=== PATIENT | male | born 1960 | race Caucasian/White ===

== ENCOUNTER 2019-08-02 14:55 | Emergency (ER) | payer BC, SELFPAY ==
[2019-08-02 14:59] VITALS: BP 122/83; PULSE 115; RESP 20; TEMP 36.4; O2SAT 98
--- NOTE | 2019-08-02 15:38 | ED.SKABFB ---
HPI - Skin/Abscess/Foreign Bdy General Chief complaint: Skin/Abscess/Foreign Body Stated complaint: poison dhiraj Time Seen by Provider: 08/02/19 15:18 Source: patient Mode of arrival: ambulatory Limitations: no limitations History of Present Illness HPI narrative: This is a 59-year-old male that presents the emergency department for poison dhiraj rash. Reports this is been present for about a week. On the forearms and upper legs. Also on the abdomen. Reports itching. He has been using [id number] ointments with little relief. Reports his left forearm has become more red and swollen. Denies fevers. Related Data Allergies Allergy/AdvReac Type Severity Reaction Status Date / Time clavulanic acid Allergy Mild Unknown Verified 08/02/19 15:04 Penicillins Allergy Mild Unknown Verified 08/02/19 15:04 BETALACTAMASEIN Allergy Mild Unknown Uncoded 08/02/19 15:04 Review of Systems Review of Systems: Narrative: CONSTITUTIONAL: Denies fever SKIN: Reports rash and itching. All systems reviewed & are unremarkable except as noted in HPI and below PMFSH Past Medical History Medical History (Updated 08/02/19 @ 15:42 by Gabriela Mcwilliams PA-C) History of sleep apnea Seasonal allergies Exam Narrative: Exam Narrative: GENERAL: Well-appearing, well-nourished, and in no acute distress. HEAD: Normocephalic, atraumatic. EYES: EOMI. EXTREMITIES: Normal range of motion. Red, papular rash with excoriations present to the bilateral forearms and left thigh. Left forearm with mild surrounding erythema and edema of the rash SKIN: Warm, dry, no rash. NEURO: No focal deficits. Alert and oriented x3. PSYCH: Normal mood and affect Course Vital Signs Vital signs: Vital Signs Temperature 97.6 F 08/02/19 14:59 Pulse Rate 115 H 08/02/19 14:59 Respiratory Rate 08/02/19 14:59 Blood Pressure 122/83 08/02/19 14:59 Pulse Oximetry 98 08/02/19 14:59 Temperature 97.6 F 08/02/19 14:59 Pulse Rate 115 H 08/02/19 14:59 Respiratory Rate 08/02/19 14:59 Blood Pressure 122/83 08/02/19 14:59 Pulse Oximetry 98 08/02/19 14:59 MDM - Skin/Abscess/Foreign Bdy MDM Narrative Medical decision making narrative: Patient presents the emergency department for contact dermatitis due to poison dhiraj. Patient instructed on antihistamines. He will be started on a oral steroid taper. Possible secondary bacterial infection of the left forearm. Patient will also be started on oral antibiotic. He is to follow-up with primary care doctor. He was given warnings to return to the ER Critical Care Time Critical Care Time Critical Care Time: No Discharge Plan Discharge Clinical Impression: Cellulitis Qualifiers: Site of cellulitis: extremity Site of cellulitis of extremity: upper extremity Laterality: left Qualified Code(s): L03.114 - Cellulitis of left upper limb Contact dermatitis Qualifiers: Contact dermatitis type: irritant Contact dermatitis trigger: oil Qualified Code(s): L24.1 - Irritant contact dermatitis due to oils and greases Patient Disposition: Home, Self-Care Condition: Stable Instructions: Antibiotic Form, Contact Dermatitis (ED), Cellulitis (ED) Additional Instructions: Return to the emergency department if you experience fever, worsening redness and swelling of your arm, or any other symptoms that are concerning to you Taking Zyrtec and Pepcid daily. Benadryl as needed for severe itching. Take steroid taper as prescribed. Take antibiotic as prescribed Follow-up with primary care doctor Prescriptions: New prednisone 10 mg tablets,dose pack See Rx Instructions .ROUTE .COMPLEX Qty: 48 RF: 0 cephalexin 500 mg capsule 500 mg PO Q6H 7 Days Qty: 28 RF: 0 Follow-up/Referrals: Aishwarya Shelley MD [Physician] - 1 Week PHYSICIAN,CORRECTIONAL PROGRAM OFFICER [Primary Care Provider] -
== END 2019-08-02 16:12 | disposition home or self-care (01) ==
PROVIDERS: Emergency Provider Emergency Medicine
DX: L03.114 Cellulitis of left upper limb (principal); L23.7 Allergic contact dermatitis due to plants, except food; G47.30 Sleep apnea, unspecified
CPT/HCPCS: 99283

== ENCOUNTER 2021-06-01 07:33 | Outpatient (CLI) | payer BC, SELFPAY ==
--- NOTE | 2021-06-14 13:05 | WPDSLEEPSTUD ---
Sleep Study Date of Study: 06/01/21 Ordering Provider: Loy Escobar APRN Interpreting Physician: Mine Key DO Sleep Study Type: Split Polysomnogram Height: 1.8 m Weight: 103.873 kg Body Mass Index: 31.9 Neck Circumference (inches): 17 [place]: 8 Reason for Sleep Study Previously diagnosed with ROSALEE in 1996. He has been compliant with PAP Therapy since then. His current machine is 13 years old. He has also lost 50 pounds since original study. Needs to requalify for PAP Therapy. Sleep History The patient is a 61-year-old male with diabetes, seasonal allergies, ROSALEE and history of tobacco abuse that had a sleep study ordered by the Pulmonary group so the patient could recall of 5 for PAP therapy. The patient is currently retired. He denies awakening from sleep short of breath. He denies awakening at night with heartburn, belching or cough. He occasionally snores and occasionally loudly enough that others complain. He occasionally has trouble sleeping when he has a cold. He denies waking up gasping for air throughout the night. He occasionally has breathing problems at night observed by himself or others. He denies sweating excessively at night. He denies having heart palpitations or irregular heartbeats during the night. He denies falling asleep during the day and while driving. He denies sleep paralysis and cataplexy. He occasionally experiences vivid dreamlike scenes upon awakening or falling asleep. He denies having nightmares. He rarely has thoughts racing through his mind. He denies feeling sad, depressed or anxious. He rarely has muscular tension. He rarely notices parts of his body jerk. He rarely kicks during the night. He denies having crawling and aching feelings in his legs as well as leg pain during the night. He denies grinding his teeth during sleep and awakening with morning jaw pain. He denies being bothered by pain during the day and being awakened by pain during the night. He rarely wakes up feeling stiff in the morning. He rarely wakes up with sore achy muscles. He rarely wakes up with pain in the neck, spine and joints. He goes to bed between 11 p.m. and midnight on both weekdays and weekends. It takes him 10 minutes to fall asleep. He wakes up once throughout the night to use the restroom. He is able to fall back asleep within 10 minutes. He wakes up between 7 and 8:00 a.m. on both weekdays and weekends. He typically gets 7-9 hours of sleep per night. He will stay in bed for 5 minutes after waking up in the morning. He currently lives with his . He will drink caffeinated beverages within 2 hours of bedtime. He will engage in physical exercise before bedtime. He will read watch television before falling asleep. He does not take naps in the afternoon or the evening. He drinks 2-3 caffeinated beverages per day. He will drink 1-2 alcoholic beverages per day. He quit smoking over 15 years ago. He denies recreational drug use. [facility] Past Medical History Medical History Diabetes mellitus Type 2 History of sleep apnea Seasonal allergies Surgical History Surgical History Hx of tonsillectomy Family History Family History Father Lung cancer Mother Pulmonary fibrosis Diabetes mellitus Sibling Carcinoma of colon Social History Social History Smoking status: Former smoker Smoking end date: 02/12/01 Alcohol intake: current Drinks per week: 1 Alcohol use details: beer/wine 1-2/week Substance use: never Additional occupation/education comments: [employer] Medications Home Medications Medication Instructions Recorded Confirmed Type cetirizine 10 mg capsule 10 mg PO DAILY PRN 05/06/21 05/06/21 History metformin 500 mg
[2021-06-14 13:08] VITALS: BMI 31.9
== END 2021-06-02 06:47 | disposition home or self-care (01) ==
LOC: ANHCSM 07:35
PROVIDERS: PCP Internal Medicine; Visit Provider Nurse Practitioner Family
DX: G47.33 Obstructive sleep apnea (adult) (pediatric) (principal)
CPT/HCPCS: 95811

== ENCOUNTER 2022-05-24 01:30 | Day surgery (SDC) | payer BC, SELFPAY ==
[2022-05-12 12:32] VITALS: BMI 31.4
--- NOTE | 2022-05-23 14:54 | PM.HPGS ---
History of Present Illness History of Present Illness Consent: Risks, benefits, and alternatives have been discussed and questions answered. Patient agrees to proceed with procedure. Chief complaint: neoplasm screening Narrative: Aidan Fuentes is a 62 year old male referred for colon cancer screening. Review of Systems Review of Systems: All systems reviewed & are unremarkable except as noted in HPI and below PMFSH Past Medical History Medical History Diabetes mellitus Type 2 History of sleep apnea Obesity (BMI 30.0-34.9) ROSALEE (obstructive sleep apnea) Seasonal allergies Surgical History Surgical History Hx of tonsillectomy (~1972) Family History Family History Father Lung cancer Mother Pulmonary fibrosis Diabetes mellitus Sibling Carcinoma of colon Other Alcoholism Grandparent Diabetes mellitus Cancer Grandparent Alcoholism Cancer Cerebrovascular accident Heart disease Social History Social History Smoking status: Former smoker Tobacco type: cigarettes Smoking end date: 02/12/01 Additional smoking assessment comments: smoked from age [age]; smoked socially; has not had a cigarette since 2018 Alcohol intake: current Drinks per week: 2 Alcohol use details: beer or wine Substance use: never Substance use type: does not use Living arrangements: with family Occupation/Education: retired 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 Spiritual care concerns: No Agree to blood products: Yes Meds Home Medications and Allergies Home Medications Medication Instructions Recorded Confirmed Type cetirizine 10 mg capsule (Zyrtec) 10 mg PO DAILY PRN Allergy Symptoms 05/06/21 05/12/22 History metformin 500 mg tablet,extended 500 mg PO BID 05/12/22 05/12/22 History release 24 hr multivitamin with minerals-folic 1 tablet PO DAILY 05/12/22 05/12/22 History acid 0.4 mg tablet Allergies Allergy/AdvReac Type Severity Reaction Status Date / Time ampicillin AdvReac Diarrhea Verified 05/24/22 07:17 Exam Const: General: alert Orientation/consciousness: patient oriented x3 Resp: Auscultation: clear to auscultation bilaterally Cardio: Rhythm: regular rhythm GI: GI Palp: Yes Soft to palpation and No Tenderness to palpation present (GI) Neuro: General: patient oriented x3 Assessment and Plan Assessment and plan (1) Colon cancer screening: Code(s): Z12.11 - Encounter for screening for malignant neoplasm of colon Status: Acute Assessment and Plan: Colonoscopy with possible biopsy or polypectomy or cautery or injection of substances.
[2022-05-24 07:16] VITALS: BP 107/71; PULSE 77; RESP 18; TEMP 36.4; O2SAT 100
[2022-05-24] MEDS: LACTATED RINGERS 1,000 ML 150 ML IV CONT (07:28)
[2022-05-24 07:45] LABS: Glucose Point of Care 156 mg/dl (65-105)
--- NOTE | 2022-05-24 08:02 | WPDANESEPPF ---
Anes - Initial Pre Proc Eval Procedure: Operation Date: 05/24/22 08:30 Proposed Procedures p Screening Colonoscopy - Edgar Hicks MD Date/Time: 05/24/22 08:02 Surgeon: Edgar Hicks MD Pre Op Diagnosis: neoplasm screening Patient Data Age: 62 Gender: M Height: 1.8 m Weight: 99.8 kg Last Vital Signs Temp 36.4 C L 05/24/22 07:16 Pulse 77 05/24/22 07:16 Resp 18 05/24/22 07:16 BP 107/71 05/24/22 07:16 Pulse Ox 100 05/24/22 07:16 O2 Del Method Room Air 05/24/22 07:16 Allergies Allergy/AdvReac Type Severity Reaction Status Date / Time ampicillin AdvReac Diarrhea Verified 05/24/22 07:17 Home Medications Medication Instructions Recorded Confirmed Type cetirizine 10 mg capsule (Zyrtec) 10 mg PO DAILY PRN Allergy Symptoms 05/06/21 05/12/22 History metformin 500 mg tablet,extended 500 mg PO BID 05/12/22 05/12/22 History release 24 hr multivitamin with minerals-folic 1 tablet PO DAILY 05/12/22 05/12/22 History acid 0.4 mg tablet Laboratory Tests 05/24/22 07:20 POC Capillary Glucose 156 mg/dl H mg/dl (65-105) Patient hx anesthesia problems: none Family hx anesthesia problems: none Results Review: All pre-operative results and documents have been reviewed as part of the pre-operative evaluation. [facility] Past Medical History Medical History (Updated 05/24/22 @ 08:03 by Tyrone Mata MD) Diabetes mellitus Type 2 History of sleep apnea Obesity (BMI 30.0-34.9) ROSALEE (obstructive sleep apnea) Seasonal allergies Surgical History Surgical History (Updated 04/19/22 @ 10:10 by Kourtney Avila RT(R)) Hx of tonsillectomy (~1972) Family History Family History (Updated 04/19/22 @ 10:11 by RT Sandy(R)) Father Lung cancer Mother Pulmonary fibrosis Diabetes mellitus Sibling Carcinoma of colon Other Alcoholism Grandparent Diabetes mellitus Cancer Grandparent Alcoholism Cancer Cerebrovascular accident Heart disease Social History Social History (Updated 04/20/22 @ 12:50 by Kourtney A. 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 Informed Consent: The patient's anesthetic plan and its attendant risks and benefits were discussed with the patient/family/POA. Questions were solicited and answers provided to the satisfaction of the patient/family/POA.
[2022-05-24 08:31] VITALS: BP 118/81; PULSE 82; RESP 20; O2SAT 100
--- NOTE | 2022-05-24 08:32 | SUR.OPER ---
DR. TENORIO AWARE ONLY 1 DESCENDING COLON POLYP RETRIEVED. Galileo PICHARDO RN & Jossue JOHN RN.
[2022-05-24 08:41] VITALS: BP 136/90; PULSE 71; RESP 19; O2SAT 99
[2022-05-24 08:51] VITALS: BP 123/83; PULSE 74; RESP 18; O2SAT 100
== END 2022-05-24 08:54 | disposition home or self-care (01) ==
PROVIDERS: PCP Nurse Practitioner Family; Visit Provider Internal Medicine Gastroenterology
PROC: 0DJD8ZZ Inspection of Lower Intestinal Tract, Via Natural or Artificial Opening Endoscopic (ICD-10-PCS; CPT 45378; principal; 2022-05-24 08:30)
DX: Z12.11 Encounter for screening for malignant neoplasm of colon (principal); D12.4 Benign neoplasm of descending colon; K62.1 Rectal polyp; E11.9 Type 2 diabetes mellitus without complications; G47.33 Obstructive sleep apnea (adult) (pediatric); Z79.84 Long term (current) use of oral hypoglycemic drugs; E66.9 Obesity, unspecified; Z68.30 Body mass index [BMI] 30.0-30.9, adult; Z87.891 Personal history of nicotine dependence
CPT/HCPCS: 45385; 82948; 88305; J2704; J7120

== ENCOUNTER 2025-01-21 10:23 | Emergency (ER) | payer MEDICARE, SELFPAY ==
--- NOTE | ~2025-01-21 | XR_ITS ---
EXAMINATION: XR chest 2V DATE: 01/21/2025 11:31 INDICATION: Cough TECHNIQUE: Frontal and lateral views of the chest were obtained. COMPARISON: 2008 FINDINGS: Patchy multifocal areas of consolidation in the mid and lower lung garcia. Upper lung garcia clear. Heart size normal. IMPRESSION: 1. Multifocal alveolar consolidative appearing changes which could represent multifocal pneumonia. 2. Correlate with follow-up chest x-ray after treatment. Reviewed, dictated and finalized at location A. PER MARKETING MANAGER IMPRESSION: 1. Multifocal alveolar consolidative appearing changes which could represent mu ltifocal pneumonia. 2. Correlate with follow-up chest x-ray after treatment.
[2025-01-21 10:37] VITALS: BP 129/71; PULSE 138; RESP 18; TEMP 36.1; O2SAT 95
--- NOTE | 2025-01-21 10:40 | ECG_ITS ---
Test Date: 2025-01-21 10:45:50 Measurements Intervals [place] Rate: 132 P: 31 MI: 113 QRS: -23 QRSD: 144 T: 76 QT: 345 QTc: 512 Interpretive Statements ATRIAL FLUTTER/TACHYCARDIA WITH RAPID VENTRICULAR RESPONSE LEFT BUNDLE BRANCH BLOCK BASELINE WANDER- I, II, AVR ABNORMAL ECG No previous ECG available for comparison Electronically Signed On 01-21-2025 10:56:30 TELECOMMUNICATIONS SWITCH TECHNICIAN by Meng Chiu D.O.
[2025-01-21 11:06] LABS: Hematocrit 36.6 % (42.0-52.0); Hemoglobin 12.5 g/dL (14.0-18.0); Immature Granulocyte Percent A 1.9 % (0-0.5); Lymphocytes Absolute Auto 0.57 K/mm3 (0.9-3.2); Mean Corpuscular HGB Conc 34.2 g/dl (32-36); Mean Corpuscular Hemoglobin 29.1 pg (26-34); Mean Corpuscular Volume 85.3 fl (80-100); Nucleated Red Blood Cells Absolute Auto 0.000 K/mm3 (0.0-0.012); Nucleated Red Blood Cells Perc 0.0 % (0.0-0.2); Platelet Count Result 257 k/mm3 (150-375); Red Blood Count 4.29 M/mm3 (4.6-6.20); White Blood Count 7.8 K/mm3 (4.5-10.0)
[2025-01-21 11:28] LABS: Alanine Aminotransferase 54 U/L (6-50); Albumin Level 3.9 g/dL (3.5-5.1); Alkaline Phosphatase 143 U/L (38-126); Anion Gap 8 mmol/L (4-12); Aspartate Amino Transferase 42 U/L (17-59); Bilirubin,Total 0.8 mg/dL (0.2-1.3); Blood Urea Nitrogen 18 mg/dL (9-20); Calcium 8.7 mg/dL (8.4-10.2); Carbon Dioxide 23 mmol/L (22-30); Chloride 97 mmol/L (98-107); Estimated CRCL calculation 62 ml/min; Estimated Glomerular Filt Rate > 60; Glucose 231 mg/dL (65-110); Potassium 3.9 mmol/L (3.4-5.0); Sodium 128 mmol/L (137-145); Total Protein 7.4 g/dL (6.3-8.2)
[2025-01-21 11:45] VITALS: BP 123/73; PULSE 98; RESP 29
[2025-01-21 11:46] VITALS: BP 123/73; PULSE 103; RESP 20; O2SAT 100
[2025-01-21 12:46] LABS: Influenza A QL RT-PCR Negative (Negative); Influenza B QL RT-PCR Negative (Negative); RSV RNA, RT-PCR Negative (Negative); SARS-CoV-2 RNA PCR Negative (Negative)
[2025-01-21] MEDS: CEFDINIR 300 MG CAPSULE PO (12:55)
[2025-01-21] MEDS: LACTATED RINGERS 1,000 ML 999 ML IV CONT (12:55)
[2025-01-21 13:30] VITALS: BP 130/71; PULSE 90; RESP 20; O2SAT 99
[2025-01-21 14:02] VITALS: BP 123/72; PULSE 99; RESP 20; O2SAT 99
[2025-01-21 14:07] VITALS: BP 123/72; PULSE 90; RESP 20; O2SAT 99
--- NOTE | 2025-01-21 17:36 | ED.URI ---
HPI - URI/Sore Throat General Chief Complaint: Upper Respiratory Infection Stated Complaint: dx with pneumonia yesterday Time Seen by Provider: 01/21/25 12:02 History of Present Illness HPI Narrative: Patient presents here after being diagnosed with pneumonia yesterday, was given prescriptions for Augmentin and azithromycin, had horrible diarrhea and nausea vomiting with this. Difficulty keeping things down. Related Data Home Medications ?Medication ?Instructions ?Recorded ?Confirmed ?Last Taken ?Type cetirizine 10 mg capsule (Zyrtec) 10 mg PO DAILY PRN Allergy Symptoms 05/06/21 10/01/24 05/23/22 History multivitamin with minerals-folic 1 tablet PO DAILY 05/12/22 10/01/24 05/23/22 History acid 0.4 mg tablet Allergies Allergy/AdvReac Type Severity Reaction Status Date / Time ampicillin AdvReac Diarrhea Verified 01/21/25 10:24 Review of Systems Review of Systems: All systems reviewed & are unremarkable except as noted in HPI and below PMFSH Past Medical History Medical History Obesity (BMI 30.0-34.9) ROSALEE (obstructive sleep apnea) Diabetes mellitus Type 2 History of sleep apnea Seasonal allergies Surgical History Surgical History Hx of tonsillectomy (~1972) Family History Family History Father Lung cancer Mother Pulmonary fibrosis Diabetes mellitus Sibling Carcinoma of colon Other Alcoholism Grandparent Diabetes mellitus Cancer Grandparent Alcoholism Cancer Cerebrovascular accident Heart disease Social History Social History Smoking status: Former smoker Tobacco type: cigarettes Smoking end date: 02/12/01 Additional smoking assessment comments: smoked from age [age]; smoked socially; has not had a cigarette since 2018 Alcohol intake: current Drinks per week: 2 Alcohol use details: beer or wine Substance use: never Substance use type: does not use Lack of Transportation: No Lack of Food: Never True Current Housing: I Have Housing Concerned About Future Housing: No Difficulty Paying Gas/Electric Bills: No Difficulty Paying for Meds: No Currently Unemployed: No Education: Bachelor's Degree Living arrangements: with family Occupation/Education: retired Additional occupation/education comments: [employer] Spiritual care concerns: No Agree to blood products: Yes Exam Narrative: EXAMINATION OF ORGAN SYSTEMS/BODY AREAS: Constitutional: Vital signs per nursing GENERAL: Appears tired HEAD: Normal with no signs of head trauma. EYES: EOMI, conjunctiva normal ENT: Hearing grossly intact LUNGS: Nonlabored breathing. Some slight crackles bilateral bases HEART: Tachycardic ABD: Soft, nontender to palpation EXT: Normal range of motion SKIN: No rashes or lesions. NEURO: Alert. No gross focal sensory or strength deficits. PSYCH: Normal affect Course Vital Signs Vital signs: Vital Signs Temperature 97.0 F L 01/21/25 10:37 Pulse Rate 138 H 01/21/25 10:37 Respiratory Rate 18 01/21/25 10:37 Blood Pressure 129/71 01/21/25 10:37 Pulse Oximetry 95 01/21/25 10:37 Oxygen Delivery Room Air 01/21/25 10:37 Temperature 97.0 F L 01/21/25 10:37 Pulse Rate 90 01/21/25 14:07 Respiratory Rate 20 01/21/25 14:07 Blood Pressure 123/72 01/21/25 14:07 Pulse Oximetry 99 01/21/25 14:07 Oxygen Delivery Room Air 01/21/25 11:45 MDM MDM Narrative Medical decision making narrative: Patient diagnosed with pneumonia and started on antibiotics but cannot tolerate the side effects of nausea and diarrhea, initially was tachycardic here, x-ray does come from likely bilateral pneumonia, viral swabs are negative. Given fluids here, trialed cefdinir instead and patient tolerated this without any issues. I will also change the azithromycin to doxycycline instead he had tried that along with nausea medications prescribed. On re-evaluation his heart rate is normal now and he feels much better and feels good about going with return precautions and follow-up to PCP Differential Diagnosis Differential Diagnosis: Pneumonia, gastroenteritis, electrolyte abnormality, etc. Lab Data 01/21/25 10:58 01/21/25 10:58 Labs: Lab Results 01/21/25 01/21/25 Range/Units 10:58 12:06 WBC 7.8 (4.5-10.0) K/mm3 RBC 4.29 L (4.6-6.20) M/mm3 Hgb 12.5 L (14.0-18.0) g/dL Hct 36.6 L (42.0-52.0) % MCV 85.3 (80-100) fl MCH 29.1 (26-34) pg MCHC 34.2 (32-36) g/dl RDW 14.6 H (11.5-14.5) % Plt Count 257 (150-375) k/mm3 MPV 9.6 (7.4-10.4) fl Immature Gran % (Auto) 1.9 H (0-0.5) % Neut % (Auto) 82.9 H (45.5-73.1) % Lymph % (Auto) 7.3 L (18.3-44.2) % [place] % (Auto) 7.4 (2.6-8.5) % Eos % (Auto) 0.1 (0-4.4) % Baso % (Auto) 0.4 (0.2-1.2) % Lymph # (Auto) 0.57 L (0.9-3.2) K/mm3 [place] # (Auto) 0.6 (0.1-0.6) K/mm3 Eos # (Auto) 0.0 (0-0.3) K/mm3 Baso # (Auto) 0.0 (0.0-0.1) K/mm3 Abs Immat Gran (auto) 0.15 H (0.00-0.031) K/mm3 Absolute Neuts (auto) 6.5 (1.3-6.7) K/mm3 Absolute Nucleated RBC 0.000 (0.0-0.012) K/mm3 Nucleated RBC % 0.0 (0.0-0.2) % Sodium 128 L (137-145) mmol/L Potassium 3.9 (3.4-5.0) mmol/L Chloride 97 L (98-107) mmol/L Carbon Dioxide 23 (22-30) mmol/L Anion Gap 8 (4-12) mmol/L BUN 18 (9-20) mg/dL Creatinine 1.10 (0.7-1.3) mg/dL Estim Creat Clear Calc 62 ml/min Estimated GFR > 60 (59 - ) Glucose 231 H (65-110) mg/dL Calcium 8.7 (8.4-10.2) mg/dL Total Bilirubin 0.8 (0.2-1.3) mg/dL AST 42 (17-59) U/L ALT 54 H (6-50) U/L Alkaline Phosphatase 143 H (38-126) U/L Total Protein 7.4 (6.3-8.2) g/dL Albumin 3.9 (3.5-5.1) g/dL Influenza A (RT-PCR) Negative (Negative) Influenza B (RT-PCR) Negative (Negative) RSV (RT-PCR) Negative (Negative) SARS-CoV-2 RNA (RT-PCR) Negative (Negative) Imaging Data Radiologist's impression: ITS Impressions Chest X-Ray 01/21/25 11:33 IMPRESSION: 1. Multifocal alveolar consolidative appearing changes which could represent multifocal pneumonia. 2. Correlate with follow-up chest x-ray after treatment. Discharge Plan Discharge Clinical Impression: Pneumonia Patient Disposition: Home Condition: Stable Instructions: Antibiotic Form, Pneumonia (ED) Additional Instructions: Try the medications as prescribed, and make sure to keep hydrated. If your symptoms continue to worsen or if you cannot keep anything down, you can come back to the emergency room. Patient Language: Japanese Prescriptions: New fluticasone propionate [Allergy Relief (fluticasone)] 50 mcg/actuation spray,suspension 1 spray intranasal DAILY Qty: 16 0RF Rx Instructions: administer into each nostril cefdinir 300 mg capsule 300 mg PO Q12H Qty: 8 0RF ondansetron 4 mg tablet,disintegrating 4 mg PO Q8H PRN (Reason: nausea and vomiting) Qty: 10 0RF doxycycline hyclate 100 mg capsule 100 mg PO Q12H 4 Days Qty: 8 0RF No Action Zyrtec 10 mg capsule 10 mg PO DAILY PRN (Reason: Allergy Symptoms) (DME) blood-glucose meter [[employer] Verio Reflect Meter] Misc See Rx Instructions .Route Qty: 1 0RF Rx Instructions: As directed multivit with min-folic acid 0.4 mg Tablet 1 tablet PO DAILY metformin 500 mg tablet extended release 24 hr 1,000 mg PO BID Qty: 360 0RF Follow-up/Referrals: Minerva Adam, SETTER UP [Primary Care Provider, Family Practice]
== END 2025-01-21 14:08 | disposition home or self-care (01) ==
PROVIDERS: Emergency Medicine; Emergency Provider Emergency Medicine; PCP Nurse Practitioner Family
DX: J18.9 Pneumonia, unspecified organism (principal); E11.9 Type 2 diabetes mellitus without complications; G47.33 Obstructive sleep apnea (adult) (pediatric); Z87.891 Personal history of nicotine dependence; Z20.822 Contact with and (suspected) exposure to COVID-19
CPT/HCPCS: 36415; 71046; 80053; 85025; 87637; 93005; 96360; 99284; A9270; J7120